=== PATIENT | female | born 1985 ===

== ENCOUNTER 2018-08-31 15:10 | Emergency (ER) | payer SELFPAY ==
[2018-08-31 15:17] VITALS: RESP 16
[2018-08-31] MEDS ORDERED: Sodium Chloride 0.9% 1,000 ML IV STA (15:34)
--- NOTE | 2018-08-31 15:52 | ED PDOC ---
HPI: Abdomen Time Seen by Provider: 08/31/18 15:20 Chief Complaint (Nursing): Abdominal Pain Chief Complaint (Provider): Abdominal Pain History Per: Patient History/Exam Limitations: no limitations Onset/Duration Of Symptoms: Days (x2) Current Symptoms Are (Timing): Still Present Location Of Pain/Discomfort: RLQ Associated Symptoms: Back Pain. denies: Fever, Chills, Nausea, Vomiting, Diarrhea, Constipation, Urinary Symptoms Additional Complaint(s): Shannan Quintanilla is a 33 year old female with no past medical history who is presenting to the ED for evaluation of abdominal pain onset 2 days ago. Patient states that it started gradually, waxing and waning in nature and would not be relived by Motrin. She states that the pain is localized to the right lower quadrant and is associated with mild back pain, worsened when walking. Patient reports that she has not had her period in over a year and has struggled with amenorrhea for over 5 years. She denies any nausea, vomiting, diarrhea, constipation, urinary symptoms, vaginal discharge, vaginal bleeding, fevers, or chills. PMD: none provided Past Medical History Reviewed: Historical Data, Nursing Documentation, Vital Signs Vital Signs: Last Vital Signs Temp 97.8 F 08/31/18 15:14 Pulse 69 08/31/18 15:14 Resp 16 08/31/18 15:14 BP 127/77 08/31/18 15:14 Pulse Ox 99 08/31/18 15:14 - Medical History PMH: No Chronic Diseases - Surgical History Surgical History: No Surg Hx - Family History Family History: States: Diabetes, Hypertension - Social History Current smoker - smoking cessation education provided: No Alcohol: None Drugs: Denies - Home Medications Home Medications: Ambulatory Orders Medication Instructions Recorded RX: Ibuprofen [Motrin Tab] 600 mg PO Q8 PRN #60 tab 08/31/18 - Allergies Allergies/Adverse Reactions: Allergies Allergy/AdvReac Type Severity Reaction Status Date / Time No Known Allergies Allergy Verified 08/31/18 15:14 Review of Systems ROS Statement: Except As Marked, All Systems Reviewed And Found Negative Constitutional: Negative for: Fever, Chills Gastrointestinal: Positive for: Abdominal Pain. Negative for: Nausea, Vomiting, Diarrhea, Constipation Genitourinary Female: Negative for: Dysuria, Frequency, Incontinence, Hematuria, Vaginal Discharge, Vaginal Bleeding Musculoskeletal: Positive for: Back Pain Physical Exam - Reviewed Nursing Documentation Reviewed: Yes Vital Signs Reviewed: Yes - Physical Exam Appears: Positive for: Non-toxic, In Acute Distress (mild painful; morbidly obese marked central obesity ) Head Exam: Positive for: ATRAUMATIC, NORMOCEPHALIC Skin: Positive for: Warm, Dry Eye Exam: Positive for: EOMI, PERRL ENT: Negative for: Pharyngeal Erythema, Tonsillar Exudate Neck: Positive for: Painless ROM, Supple Cardiovascular/Chest: Positive for: Regular Rate, Rhythm, Chest Non Tender. Negative for: Murmur Respiratory: Positive for: Normal Breath Sounds. Negative for: Respiratory Distress Gastrointestinal/Abdominal: Positive for: Soft, Tenderness (right lower quadrant positive McBurney's Point tenderness, (-) Harris's sign). Negative for: Mass, Guarding, Rebound Back: Positive for: Normal Inspection. Negative for: Decreased ROM Extremity: Positive for: Normal ROM. Negative for: Deformity Lymphatic: Negative for: Adenopathy Neurologic/Psych: Positive for: Alert. Negative for: Motor/Sensory Deficits - Laboratory Results Result Diagrams: 08/31/18 16:00 08/31/18 16:00 - ECG O2 Sat by Pulse Oximetry: 99 (RA) Pulse Ox Interpretation: Normal Medical Decision Making Medical Decision Making: Time: 15:33 Impression: Abdominal Pain Differentials (including but not limited to): appendicitis, colitis, mesenteric adenitis, ovarian cyst, cystitis Plan: --Blood Type and Screen --CMP --Lact Acid --Lipase --ED Urine --ED Urine Dipstick --CBC --Coags --IV Fluids 18:01 CT findings: LOWER THORAX: Mild passive/dependent type atelectasis both posterior lower lung fuentes. No focal consolidation. No effusion or basilar pneumothorax. Heart size within range of normal. No significant pericardial effusion. Tiny hiatal hernia. LIVER: Liver is enlarged measuring over 20 cm in CC dimension. Mild diffuse fatty hepatic infiltration. No obvious hepatic masses or collections. Portal and splenic veins are opacified. GALLBLADDER AND BILE DUCTS: The gallbladder physiologically distended. No evidence of intraluminal gallbladder calculi. PANCREAS: Unremarkable. No mass. No ductal dilatation. SPLEEN: Spleen exhibits normal size and attenuation pattern without masses collections or calcifications. ADRENALS: There are no adrenal lesions. KIDNEYS AND URETERS: Kidneys demonstrate relatively symmetric nephrograms. No evidence of nephrolithiasis or hydronephrosis. BLADDER: Urinary bladder is physiologically distended.. There is an elliptical shaped on is calculus seen within the mid pole collecting system right kidney that measures 8.3 x 3.4 mm. No evidence of hydronephrosis. The no DISH in renal calculi. REPRODUCTIVE: .Unremarkable as visualized. APPENDIX: The the the appendix is not seen with any certainty however no definitive inflammatory changes right lower quadrant of the abdomen. Note however that the possibility of a early acute appendicitis cannot be excluded if this patient has not had prior appendectomy. Therefore clinical correlation with history physical exam and laboratory values recommended BOWEL: Evaluation of the bowel is limited due to the lack of oral contrast material. Stomach is incompletely distended. Visualized loops of small bowel exhibit n ormal contour and caliber. No evidence of acute mechanical small bowel obstruction. Stool and air seen throughout the large bowel with no definitive mural wall thickening. PERITONEUM: Unremarkable. No fluid collection. No free air. LYMPH NODES: Unremarkable. No enlarged lymph nodes. VASCULATURE: Unremarkable. No aortic aneurysm. No aortic atherosclerotic calcification or mural plaque present. BONES: No fracture or destructive lesion. OTHER FINDINGS: None. IMPRESSION: Hepatomegaly with mild fatty hepatic infiltration. Nonobstructing 8.3 x 3.4 mm calculus midpole collecting system right kidney. The appendix is not seen with any certainty however no definitive inflammatory changes right lower quadrant of the abdomen. Note however that the possibility of a early acute appendicitis cannot be excluded if this patient has not had prior appendectomy. Therefore clinical correlation with history physical exam and laboratory values recommended These findings discussed with referring emergency room physician. time: 19:00 Provider discussed findings with patient and upon reevaluation patient is comfortable with no progression of pain and no progression of any gastrointestinal symptoms. Further signs of appendicitis were discussed with patient and return instructions for the ED were explained. Patient is stable for discharge and has been told to follow up with clinic. Scribe Attestation: Documented by Ghislaine Sears, acting as a scribe for Nalini Douglas MD. Provider Scribe Attestation: All medical record entries made by the Scribe were at my direction and personally dictated by me. I have reviewed the chart and agree that the record accurately reflects my personal performance of the history, physical exam, medical decision making, and the department course for this patient. I have also personally directed, reviewed, and agree with the discharge instructions and disposition. Disposition - Clinical Impression Clinical Impression: Abdominal pain - Disposition Referrals: [facility] [Outside] ([facility]UP[facility] EN 2-3 ROBERTS A CHEQAR DE NUEVO) Disposition: Routine/Home Disposition Time: 18:30 Condition: IMPROVED Additional Instructions: REGRESA A LA [facility] DE EMERGENCIA SI [place]: SI USTED ESTA VOMITANDO, SI TIENE FIEBRE, SI TIENE MUCHO DOLOR, O OTRAS MALAS SINTOMAS BLANDITO COMIDO Y MUKUL MUCHO FLUIDOS Prescriptions: RX: Ibuprofen [Motrin Tab] 600 mg PO Q8 PRN #60 tab PRN Reason: Pain, Moderate (4-7) Instructions: Acute Abdomen (Belly Pain), Adult (DC) Forms: [facility] ED School/Work Excuse Print Language: TRINIDADIAN
[2018-08-31 16:11] LABS: BASO # 0.1 K/uL (0.0-0.2); BASO % 0.9 % (0.0-2.0); EOS # 0.4 K/uL (0.0-0.7); EOS % 4.2 % (0.0-4.0); LYMPH # 2.5 K/uL (1.0-4.3); LYMPH % 27.2 % (20.0-40.0); MEAN CELL VOLUME 81.7 fl (81.0-99.0); MEAN CORPUSCULAR HEMOGLOBIN 27.4 pg (27.0-31.0); MEAN CORPUSCULAR HGB CONC 33.5 g/dL (33.0-37.0); MEAN PLATELET VOLUME 8.5 fl (7.2-11.7); MONO # 0.5 K/uL (0.0-0.8); NEUT # 5.7 K/uL (1.8-7.0); NEUT % 62.7 % (50.0-75.0); NRBC % 0.1 % (0.0-0.0); RBC 5.1 Mil/uL (3.80-5.20); RED CELL DISTRIBUTION WIDTH 12.7 % (11.5-14.5); WHITE BLOOD COUNT 9.1 K/uL (4.8-10.8)
[2018-08-31 16:21] LABS: ALB/GLOB RATIO 1.3 (1.0-2.1); ALBUMIN 4.4 g/dL (3.5-5.0); ALT/SGPT 87 U/L (9-52); AST/SGOT 81 U/L (14-36); BLOOD UREA NITROGEN 10 mg/dl (7-17); CALCIUM 9.1 mg/dL (8.4-10.2); GFR NON-AFRICAN AMERICAN > 60; LIPASE 187 U/L (23-300); PARTIAL THROMBOPLASTIN TIME 35.5 Seconds (25.6-37.1)
[2018-08-31] MEDS ORDERED: Sodium Chloride 0.9% 50 ML IV ONE (17:24)
[2018-08-31] MEDS ORDERED: Iohexol 300 100 ML IJ ONE (17:24)
--- NOTE | 2018-08-31 18:27 | CT ---
Date of service: 08/31/2018 PROCEDURE: CT Abdomen and Pelvis. HISTORY: Right lower quadrant abdominal pain COMPARISON: None. TECHNIQUE: Contiguous helical/transaxial sections of the abdomen pelvis performed following intravenous injection of approximately a 100 cc Omnipaque 300 contrast material. Additional 2D sagittal and coronal reformats generated. Radiation dose: Total exam DLP = 907.28 mGy-cm. This CT exam was performed using one or more of the following dose reduction techniques: Automated exposure control, adjustment of the mA and/or kV according to patient size, and/or use of iterative reconstruction technique. FINDINGS: LOWER THORAX: Mild passive/dependent type atelectasis both posterior lower lung fuentes. No focal consolidation. No effusion or basilar pneumothorax. Heart size within range of normal. No significant pericardial effusion. Tiny hiatal hernia. LIVER: Liver is enlarged measuring over 20 cm in CC dimension. Mild diffuse fatty hepatic infiltration. No obvious hepatic masses or collections. Portal and splenic veins are opacified. GALLBLADDER AND BILE DUCTS: The gallbladder physiologically distended. No evidence of intraluminal gallbladder calculi. PANCREAS: Unremarkable. No mass. No ductal dilatation. SPLEEN: Spleen exhibits normal size and attenuation pattern without masses collections or calcifications. ADRENALS: There are no adrenal lesions. KIDNEYS AND URETERS: Kidneys demonstrate relatively symmetric nephrograms. No evidence of nephrolithiasis or hydronephrosis. BLADDER: Urinary bladder is physiologically distended.. There is an elliptical shaped on is calculus seen within the mid pole collecting system right kidney that measures 8.3 x 3.4 mm. No evidence of hydronephrosis. The no DISH in renal calculi. REPRODUCTIVE: .Unremarkable as visualized. APPENDIX: The the the appendix is not seen with any certainty however no definitive inflammatory changes right lower quadrant of the abdomen. Note however that the possibility of a early acute appendicitis cannot be excluded if this patient has not had prior appendectomy. Therefore clinical correlation with history physical exam and laboratory values recommended BOWEL: Evaluation of the bowel is limited due to the lack of oral contrast material. Stomach is incompletely distended. Visualized loops of small bowel exhibit normal contour and caliber. No evidence of acute mechanical small bowel obstruction. Stool and air seen throughout the large bowel with no definitive mural wall thickening. PERITONEUM: Unremarkable. No fluid collection. No free air. LYMPH NODES: Unremarkable. No enlarged lymph nodes. VASCULATURE: Unremarkable. No aortic aneurysm. No aortic atherosclerotic calcification or mural plaque present. BONES: No fracture or destructive lesion. OTHER FINDINGS: None. IMPRESSION: Hepatomegaly with mild fatty hepatic infiltration. Nonobstructing 8.3 x 3.4 mm calculus midpole collecting system right kidney. The appendix is not seen with any certainty however no definitive inflammatory changes right lower quadrant of the abdomen. Note however that the possibility of a early acute appendicitis cannot be excluded if this patient has not had prior appendectomy. Therefore clinical correlation with history physical exam and laboratory values recommended These findings discussed with referring emergency room physician.
[2018-08-31 19:18] VITALS: BP 120/71; PULSE 70; TEMP 97.7
[2018-09-01 09:03] VITALS: O2SAT 99
== END 2018-08-31 19:18 | disposition home or self-care (01) ==
LOC: H.ER 15:10
DX: R10.31 Right lower quadrant pain (principal)
CPT/HCPCS: 74177; 80053; 81025; 83605; 83690; 85025; 85610; 85730; 86850; 86900; 99284; J7030; Q9967